=== PATIENT | female | born 1940 | race Caucasian/White ===

== ENCOUNTER 2016-05-20 12:09 | Emergency (ER) | payer MEDICARE ==
[2016-05-20] MEDS ORDERED: Amoxicillin/Potassium Clav 875 MG TAB ONE (13:06)
== END 2016-05-20 13:10 | disposition home or self-care (01) ==
LOC: MADERS 12:09
DX: K11.20 Sialoadenitis, unspecified (principal); I10 Essential (primary) hypertension; E78.5 Hyperlipidemia, unspecified; E78.00 Pure hypercholesterolemia, unspecified; F32.9 Major depressive disorder, single episode, unspecified; Z79.899 Other long term (current) drug therapy
CPT/HCPCS: 99283